=== PATIENT | female | born 1990 ===

== ENCOUNTER 2016-11-01 06:30 | Emergency (ER) | payer SELFPAY ==
--- NOTE | 2016-11-01 07:01 | ERNOTE ---
<Vitaly Lane - Last Filed: 11/01/16 08:01> Abdominal HPI - Narrative Date of Service: 11/01/16 - General Chief Complaint: Abdominal Pain Time Seen by Provider: 11/01/16 06:43 Source: patient Exam Limitations: no limitations - Immun/Allergies/Home Medications Immunizatons: IMMUNIZATION HX Immunizations Up to Date Yes History of Influenza Vaccine Yes Allergies/Adverse Reactions: Allergies No Known Allergies Allergy (Unverified 06/27/16 08:12) - History of Present Illness Narrative: Infraumbilical pain that has been occurring for about three days. Initially the pain was intermittent but now is constant. Denies any vaginal discharge, dysuria , fevers/chills, or urinary frequency. Complaints of minimal back pain. Home test was found to be positive a few days ago. Date (Duration): 11/01/16 Timing: constant Quality: moderate, sharpness Activities at Onset: none Modifying Factors - (Improves): Present: other Modifying Factors - (Worsens): Present: other Associated Symptoms: Absent: fever/chills, nausea, vomiting Prior Abdominal Problems: Present: none Review of Systems - Review of Systems Constitutional: Present: no symptoms reported EYE: Present: no symptoms reported ENT: Present: no symptoms reported Respiratory: Present: no symptoms reported Cardiology: Present: no symptoms reported Gastrointestinal/Abdominal: Present: no symptoms reported Genitourinary: Present: no symptoms reported Musculoskeletal: Present: no symptoms reported Skin: Present: no symptoms reported Neurological: Present: no symptoms reported Endocrine: Present: no symptoms reported Hematologic/Lymphatic: Present: no symptoms reported Psych: Present: no symptoms reported - Patient's Past Medical History Patient History - Medical: No pertinent hx Patient History - Cardiac/Respiratory: Arrhythmias Patient History - Cancer: No Hx of Cancer Patient History - Surgical Procedures: Patient History - Other: None LMP (females 10-50): 2 months - Family History Mother Family History - Cardiac/Respiratory: Asthma - Social History Living Situations: home Smoking Status: Current every day smoker - Immunizations Immunizations Up to Date: Yes History of Influenza Vaccine: Yes Physical Exam - Physical Exam General Appearance: Present: no apparent distress Eye Exam: Normal inspection: bilateral Ears, Nose, Throat: Present: normal ENT inspection Neck: Present: normal inspection Respiratory: Present: no respiratory distress Cardiovascular/Chest: Present: regular rate, rhythm Gastrointestinal/Abdominal: Present: nontender, nondistended, soft, no organomegaly Back Exam: Present: normal inspection Extremity Exam: Present: normal inspection Neurological Exam: Present: alert, oriented, 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 Fluids. Follow-up tis week with Veterinary Surgeon. I have spoken with Dr Alicea today. Return for vaginal bleeding, fever or if your condition worsens or changes in any way. <Beni Garcia - Last Filed: 11/01/16 09:20> Abdominal HPI - Immun/Allergies/Home Medications Immunizatons: IMMUNIZATION HX Immunizations Up to Date Yes History of Influenza Vaccine Yes ED Progress - Results and Orders Patient's Lab Results:: I have reviewed the patient's lab results. - Vital Signs Patient's Vital Signs:: I have reviewed the patient's vital signs. Vital Signs: Vital Signs 11/01/16 06:34 Temperature 36.2 C L Pulse Rate 87 Respiratory 12 Rate Blood Pressure 142/92 O2 Sat by Pulse 96 Oximetry - CT/Ultrasound CT/Ultrasound Narrative: US report reviewed. - Progress/Reassessment Progress Note-Subjective: 11/01/16 09:18 Patient was checked out to be by Dr Lane at shift change. Pending US only. US report reviewed. Patient relates feeling improved. No vaginal bleeding. No ectopic on US. IUP without pole. I discussed the case with Dr Alicea who was signal intelligence/electronic warfare for OB. She will be seen in the office this week. I disucssed this with the patient.
[2016-11-01 07:05] LABS: Urine Bilirubin Negative (NEGATIVE); Urine Blood Negative /ul (NEGATIVE); Urine Ketone Negative (NEGATIVE); Urine Nitrite Negative (NEGATIVE); Urine Protein Negative (NEGATIVE); Urine Specific Gravity 1.015 SP.GR. (1.005-1.010); Urine Urobilinogen Normal (NORMAL)
[2016-11-01 07:12] LABS: Urine Appearance Clear; Urine Bacteria None Seen; Urine Color Yellow; Urine RBC None Seen /hpf (0-5); Urine WBC None Seen /hpf (0-5)
[2016-11-01 07:19] LABS: Hematocrit 36.9 % (37.0-47.0); Hemoglobin 12.5 gm/dL (12.5-16.0); Mean Cell Volume 88.9 fl (78-100); Mean Corpuscular Hemoglobin 30.1 pg (27-31); Mean Corpuscular Hgb Conc 33.9 g/dl (32-36); Mean Platelet Volume 8.6 fl (6.0-9.5); Neutrophil # 6.6 K/mm3 (1.3-6.0); Neutrophil % 61.8 % (42-75.0); Platelet Count 303 K/mm3 (150-450); Red Blood Count 4.15 M/mm3 (4.2-5.4); Red Cell Distribution Width 13.5 % (11.5-14.0); White Blood Count 10.7 K/mm3 (4.0-10.5)
[2016-11-01 07:27] LABS: BUN/Creatinine Ratio 13.4 (9.0-21.6); Calcium * 8.8 mg/dL (7.9-10.9); Carbon Dioxide 25.3 mmol/L (24-32.6); Estimated Creat Clear 107.1; Potassium 3.3 mmol/L (3.4-4.6)
[2016-11-01 09:34] VITALS: BP 122/72
== END 2016-11-01 10:15 | disposition home or self-care (01) ==
LOC: ER 06:30
DX: Z32.01 Encounter for pregnancy test, result positive (principal); F17.210 Nicotine dependence, cigarettes, uncomplicated

== ENCOUNTER 2016-12-28 01:27 | Emergency (ER) | payer OTHER ==
--- NOTE | 2016-12-28 02:09 | ERNOTE ---
ER Female HPI Stated Complaint: BLEEDING AND Presenting Symptoms: vaginal bleeding Source: patient Exam Limitations: no limitations Immunizations: IMMUNIZATION HX Immunizations Up to Date Yes History of Influenza Vaccine Yes Allergies/Adverse Reactions: Allergies No Known Allergies Allergy (Unverified 06/27/16 08:12) Home Medications: HOME MEDICATIONS NK [No Home Medication] 12/28/16 [Last Taken Unknown] - History of Present Illness Narrative: 26 year old year old approximately 12 weeks gestation states she started having vaginal bleeding and some cramping this evening. She has some cramping and bleeding early on in the at the end of October and was seen in the emergency department. She states she's had no bleeding since that time until this evening. She states she's not passed any tissue or clots. Examination reveals no evidence of active bleeding at this time Timing: Present: gone now Quality: Present: mild Prior Abdominal Problems: Present: none Review of Systems - Review of Systems Constitutional: Present: no symptoms reported EYE: Present: no symptoms reported ENT: Present: no symptoms reported Respiratory: Present: no symptoms reported Cardiology: Present: no symptoms reported Gastrointestinal/Abdominal: Present: no symptoms reported Genitourinary: Present: See HPI Musculoskeletal: Present: no symptoms reported Skin: Present: no symptoms reported Neurological: Present: no symptoms reported Endocrine: Present: no symptoms reported Hematologic/Lymphatic: Present: no symptoms reported Psych: Present: no symptoms reported - Patient's Past Medical History Patient History - Medical: No pertinent hx Patient History - Cardiac/Respiratory: Arrhythmias Patient History - Cancer: No Hx of Cancer Patient History - Surgical Procedures: Patient History - Other: None LMP (females 10-50): - Family History Mother Family History - Cardiac/Respiratory: Asthma - Social History Living Situations: parents Abuse History: No History of abuse Psych History: No pertinent hx Smoking Status: Current every day smoker Alcohol Use: none Drug Use: none - Immunizations Immunizations Up to Date: Yes History of Influenza Vaccine: Yes Physical Exam - Physical Exam General Appearance: Present: wd/wn, alert, no apparent distress Eye Exam: Normal inspection: bilateral, PERRL: bilateral Ears, Nose, Throat: Present: normal ENT inspection, H, normal pharynx Neck: Present: normal inspection, nontender Respiratory: Present: no respiratory distress, normal breath sounds, no accessory muscle use, chest nontender, lungs clear Cardiovascular/Chest: Present: regular rate, rhythm, no murmur, normal peripheral pulses Gastrointestinal/Abdominal: Present: normal bowel sounds, nontender, nondistended, soft, no organomegaly Rectal Exam: Present: deferred Back Exam: Present: normal inspection, normal range of motion, no CVA tenderness , no vertebral tenderness Extremity Exam: Present: normal inspection, non-tender, no edema, normal range of motion Neurological Exam: Present: alert, oriented, normal mood/affect, no motor/ sensory deficits Skin Exam: Present: normal color, warm/dry Lymphatic Exam: Present: no adenopathy Pelvic Exam: Absent: active bleeding ED Progress - Vital Signs Vital Signs: Vital Signs 12/28/16 01:35 Temperature 37.1 C Pulse Rate 80 Respiratory 14 Rate Blood Pressure 129/85 O2 Sat by Pulse 100 Oximetry - Progress/Reassessment Chief Complaint: Genitourinary Problem Departure Clinical Impression: Threatened - Departure Disposition: Home self-care Condition: Good Instructions: Threatened Miscarriage, [id number] Additional Instructions: See Dr. Alicea on Thursday for an HCG blood test. Call her or return to the ER if heavy bleeding occurs Referrals: Abigail Alicea DO [Primary Care Provider] -
[2016-12-28 02:56] VITALS: BP 121/73
--- OUTSIDE RECORDS SUMMARY | 2016-12-28 03:04 | XMS REPORT | CCD ---
:1990 Author Name PARRISMARIO DAVIS Thom Address [address] [facility] Unavailable [place], [place] [id number] Care Team Providers Name Role Phone DURAN VALDERRAMA Attending Physician Unavailable DURAN VALDERRAMA Er Physician 1 Unavailable Vital Signs Vital Sign Value Unit Date/Time Recent/Initial? Weight Measured 170.4 lbs 06/13/2015 05:38 Initial VS Height 63 in 06/13/2015 05:38 Initial VS BMI (Body Mass Index) 30.18 kg/m^2 06/13/2015 05:38 Initial VS BSA (Body Surface Area) 1.85 m^2 06/13/2015 05:38 Initial VS BP Systolic 131 mmHg 06/13/2015 05:38 Initial VS BP Diastolic 93 mmHg 06/13/2015 05:38 Initial VS Allergies Allergy Code Allergy Type Reaction Status No Known Allergies 0 No known allergies Active Procedures Procedure Code Procedure Type Date ABD 2 VWS DECUB OR UPRIGHT 08194871 SNOMED CT 06/13/2015 History of Immunizations Immunization Code Date MMR 03 02/05/1995 Hib, unspecified formulation 17 1992 Hib, unspecified formulation 17 1992 Hib, unspecified formulation 17 02/05/1995 Hib, unspecified formulation 17 1992 DTP-Hib 22 1992 DTP-Hib 22 1992 DTP-Hib 22 1992 DTaP, unspecified formulation 107 02/06/1995 Novel [id number], preservative-free 126 08/20/2009 Influenza, seasonal, injectable 141 08/05/2011 no vaccine administered 998 1992 Problems Problem Code Start Date Resolved Date Status Poor nutrition 45675049 Active Results COMPREHENSIVE METABOLIC PANEL - Collect Date/Time: 06/13/2015 05:54 Test Name Code Test Result Test Units Test Ref Range GLUCOSE 80 mg/dL L=74 H=106 SODIUM 140 mmol/L L=136 H=145 POTASSIUM 3.6 mmol/L L=3.5 H=5.1 CHLORIDE 103 mmol/L L=98 H=107 CO2 27 mmol/L L=21 H=32 BUN 13.0 mg/dL L=7.0 H=18.0 CREATININE 0.8 mg/dL L=0.6 H=1.0 BUN/CREAT 16.3 L=7.6 H=21.2 CALCIUM 9.0 mg/dL L=8.6 H=10.1 TOTAL BILI 0.2 mg/dL L=0.2 H=1.0 TOTAL PROTEIN 7.2 g/dL L=6.4 H=8.2 ALBUMIN 3.7 g/dL L=3.4 H=5.0 A/G RATIO 1.1 ALKALINE PHOS 112 IU/L L=50 H=136 AST/SGOT 16 IU/L L=15 H=37 ALT/SGPT 25 IU/L L=12 H=78 ANION GAP 13.5 mmol/L L=7.0 H=16.0 AGE 25 YEARS GFR 94.48 ml/min CBC W/DIFF - Collect Date/Time: 06/13/2015 05:54 Test Name Code Test Result Test Units Test Ref Range WBC 6690-2 9.3 K/uL L=3.2 H=10.0 RBC 789-8 4.36 M/uL L=4.00 H=5.20 HEMOGLOBIN 718-7 13.0 g/dL L=12.1 H=15.6 HEMATOCRIT 37.5 % L=35.0 H=47.0 MCV 86.0 fL L=81.0 H=101 MCH 29.8 PG L=26.0 H=38.0 MCHC 34.7 G/DL L=31.0 H=37.0 RDW-SD 43.0 FL L=37.0 H=54.0 RDW-CV 14.1 % L=11.0 H=16.0 PLATELETS 350 K/UL L=140 H=380 MPV 9.2 FL L=9.0 H=13.0 %GRAN 46.3 % L=0.0 H=75.0 %LYMPH 42.9 % L=0.0 H=50.0 %MONO 6.1 % L=0.0 H=14.0 %EOS 4.3 % L=0.0 H=6.0 %BASO 0.4 % L=0.0 H=1.0 #GRAN 4.28 K/UL L=1.80 H=7.80 #LYMPH 3.98 K/UL L=0.30 H=4.00 #MONO 0.57 K/UL L=0.00 H=0.70 #EOS 0.40 K/UL L=0.00 H=0.40 #BASO 0.04 K/UL L=0.00 H=0.10 SLIDE REVIEWED? NOT INDICATED N/A MANUAL DIFF NOT INDICATED N/A UA W/MICROSCOPIC EXAM - Collect Date/Time: 06/13/2015 05:54 Test Name Code Test Result Test Units Test Ref Range COLOR UR Yellow N/A NORMAL:YELLOW CLARITY UR Clear N/A NORMAL:CLEAR SP GRAV UR 1.015 N/A NORMAL:1.000-1.030 PH UR 6.0 N/A NORMAL:5.0-8.5 PROTEIN UR Negative N/A NORMAL:NEGATIVE GLUCOSE UR Negative N/A NORMAL:NEGATIVE KETONE UR Negative N/A NORMAL:NEGATIVE BILIRUBIN UR Negative N/A NORMAL:NEGATIVE BLOOD UR Negative N/A NORMAL:NEGATIVE LEUK UR Negative N/A NORMAL:NEGATIVE NITRITE UR Negative N/A NORMAL:NEGATIVE MICRO SEE BELOW N/A RBC/hpf 0 N/A NORMAL:0-5/hpf WBC/hpf 0 N/A NORMAL:0-10/hpf EPI UR 10-20 N/A NORMAL:NONE SEEN BACTERIA UR NONE SEE N/A NORMAL:NONE SEEN MUCOUS NONE SEE N/A NORMAL:NONE SEEN CAST NONE SEE N/A CRYSTALS NONE SEE N/A CULTURE? NO N/A HCG QUALITATIVE, SERUM OR PLASMA - Collect Date/Time: 06/13/2015 05:54 Test Name Code Test Result Test Units Test Ref Range BHCG QUAL NEGATIVE N/A Active Medications Unknown or Not Available. Medications Administered During Visit Unknown or Not Available. Encounters Encounter Diagnosis Diagnosis Code Start Date UNSPECIFIED CONSTIPATION 72821 06/13/2015 Social History Smoking Status Code Start Date End Date Current every day smoker [id number] 02/07/1999 Patient Decision Aids Unknown or Not Available. Discharge Instructions You were admitted to [facility] on 06/13/2015 with a principal diagnosis of UNSPECIFIED CONSTIPATION. You were discharged from [facility] on 06/13/2015. Should you have any questions prior to discharge, please contact a member of your healthcare team. If you have left the hospital and have any questions, please contact your primary care physician. Chief Complaint and Reason For Visit Chief Complaint Date of Onset LOWER LEFT ABDOM PAIN Function Status Unknown or Not Available. Plan of Care Unknown or Not Available. Referral/Transition of Care Unknown or Not Available.
--- OUTSIDE RECORDS SUMMARY | 2016-12-28 03:04 | XMS REPORT | Continuity of Care Document ---
:1990 Author Organization [facility] ([facility]) Address [address] [place] [address] Phone [phone] Support Name Relationship Address Phone Unavailable Unavailable [address] 10/[address] [id number] [address] [place] [address] Care Team Providers Name Role Phone Provider, No-Primary Care Primary Care Provider Unavailable Source Comments This disclosure is being made pursuant to the Care Everywhere program, applicable federal and state laws, and may not contain all informaitonavailable regarding this patient.[facility] ([facility]) Active Allergies and Adverse Reactions No Known Allergies Current Medications Prescription Sig. Disp. Refills Start Date End Date Status nitrofurantoin Take 1 Cap by mouth 14 Cap 0 12/04/2014 Active (MACROBID) 100 mg 2 times daily. capsule Indications: BACTERIAL URINARY TRACT INFECTION Active Problems Problem Noted Date Abdominal pain in , antepartum 12/04/2014 08/13/2010 Immunizations Name Dates Previously Given Next Due Tdap 08/14/2010 Social History Tobacco Use Types Packs/Day Years Used Date Current Every Day Smoker Cigarettes 0.25 Alcohol Use Drinks/Week oz/Week Comments No occassional Last Filed Vital Signs Vital Sign Reading Time Taken Blood Pressure 134/72 10/08/2015 6:51 PM ASSURANCE AUDITOR Pulse 88 10/08/2015 6:51 PM ASSURANCE AUDITOR Temperature 35.7 C (96.3 F) 10/08/2015 6:51 PM ASSURANCE AUDITOR Respiratory Rate 17 10/08/2015 6:51 PM ASSURANCE AUDITOR Height 1.575 m (5' 2") 10/08/2015 6:51 PM ASSURANCE AUDITOR Weight 72.576 kg (160 lb) 10/08/2015 6:51 PM ASSURANCE AUDITOR Body Mass Index 29.26 10/08/2015 6:51 PM ASSURANCE AUDITOR Oxygen Saturation 100% 10/08/2015 6:51 PM ASSURANCE AUDITOR Plan of Care Health Maintenance Due Date Last Done Comments Hepatitis B Vaccine (1 of 3 - Primary Series) 1992 HPV Vaccine (1 of 3 - Female/Unknown 3 Dose Series) 02/07/2003 Cervical Cancer Screening 02/07/2010 Lipid Disorder Screening 02/07/2010 MMR Vaccine 02/07/2010 Pneumococcal Vaccine (1 of 1 - PPSV23) 02/07/2011 Influenza Vaccine: Seasonal (#1) 05/05/2016 Td Vaccine 08/14/2020 08/14/2010 Tdap Vaccine Completed 08/14/2010 Results from Last 3 Months Not on file
--- OUTSIDE RECORDS SUMMARY | 2016-12-28 03:04 | XMS REPORT | CCD ---
:1990 Author Name STEVEMARIO SOUSA Thom Address [address] [facility] Unavailable [place], [place] [id number] Care Team Providers Name Role Phone NELIA TURCIOS Attending Physician Unavailable NELIA TURCIOS Er Physician 1 Unavailable IZA Jansen Registered Nurse Unavailable Vital Signs Vital Sign Value Unit Date/Time Recent/Initial? Weight Measured 160 lbs 02/12/2014 15:27 Initial VS Height 62 in 02/12/2014 15:27 Initial VS BMI (Body Mass Index) 29.26 kg/m^2 02/12/2014 15:27 Initial VS BSA (Body Surface Area) 1.78 m^2 02/12/2014 15:27 Initial VS Allergies Unknown. Procedures Unknown. History of Immunizations Unknown. Problems Unknown. Results UA W/MICROSCOPIC EXAM Test Name Code Test Result Test Units Test Date/Time COLOR UR DK YELLOW N/A 02/12/2014 16:01 CLARITY UR SL CLOUDY N/A 02/12/2014 16:01 SP GRAV UR 1.010 N/A 02/12/2014 16:01 PH UR 6.0 N/A 02/12/2014 16:01 PROTEIN UR 1+ N/A 02/12/2014 16:01 GLUCOSE UR NEGATIVE N/A 02/12/2014 16:01 KETONE UR TRACE N/A 02/12/2014 16:01 BILIRUBIN UR NEGATIVE N/A 02/12/2014 16:01 BLOOD UR 2+ N/A 02/12/2014 16:01 LEUK UR TRACE N/A 02/12/2014 16:01 NITRITE UR NEGATIVE N/A 02/12/2014 16:01 MICRO SEE BELOW N/A 02/12/2014 16:01 RBC/hpf 5 N/A 02/12/2014 16:01 WBC/hpf 5 N/A 02/12/2014 16:01 EPI UR 2-5 N/A 02/12/2014 16:01 BACTERIA UR FEW N/A 02/12/2014 16:01 MUCOUS NONE SEE N/A 02/12/2014 16:01 CAST NONE SEE N/A 02/12/2014 16:01 CRYSTALS NONE SEE N/A 02/12/2014 16:01 CULTURE? YES N/A 02/12/2014 16:01 Medications No Active Medications Medications Administered Unknown. Encounters Encounter Diagnosis Diagnosis Code Start Date URIN TRACT INFECTION NOS 5990 02/12/2014 Social History Smoking Status Code Start Date End Date Current every day smoker [id number] Patient Decision Aids Patient Decision Aid [facility] Patient Educational Materials Discharge Instructions You were admitted to [facility] on 02/12/2014 with a principle diagnosis of URIN TRACT INFECTION NOS. You had the following procedures done:INJECT ANTIBIOTIC You were discharged from [facility] on 02/12/2014. Should you have any questions prior to discharge, please contact a member of your healthcare team. If you have left the hospital and have any questions, please contact your primary care physician. Chief Complaint and Reason For Visit Chief Complaint Date of Onset BLOOD IN URINE Function Status Unknown. Plan of Care Unknown. Referral/Transition of Care Unknown.
--- OUTSIDE RECORDS SUMMARY | 2016-12-28 03:05 | XMS REPORT | CCD ---
:1990 Author Name ANNABELLA CORREA Address [address] Unavailable [place], [place] [id number] Care Team Providers Name Role Phone BRUNA STEVENSON Attending Physician Unavailable Vital Signs Vital Sign Value Unit Date/Time Recent/Initial? BP Systolic 136 mmHg 01/31/2015 15:04 Initial VS BP Diastolic 70 mmHg 01/31/2015 15:04 Initial VS Respiratory Rate 18 bpm 01/31/2015 15:04 Initial VS Heart Rate 59 bpm 01/31/2015 15:04 Initial VS Body Temperature 98.5 degrees 01/31/2015 15:04 Initial VS Weight Measured 188.8 lbs 01/31/2015 15:24 Initial VS Height 62 in 01/31/2015 15:24 Initial VS BMI (Body Mass Index) 34.39 kg/m^2 01/31/2015 15:24 Initial VS BSA (Body Surface Area) 1.94 m^2 01/31/2015 15:24 Initial VS Allergies Allergy Code Allergy Type Reaction Status No Known Allergies 0 No known allergies Active Procedures Procedure Code Procedure Type Date CULTURE URINE [id number] SNOMED CT 01/31/2015 History of Immunizations Immunization Code Date MMR 03 02/05/1995 Hib, unspecified formulation 17 1992 Hib, unspecified formulation 17 1992 Hib, unspecified formulation 17 02/05/1995 Hib, unspecified formulation 17 1992 DTP-Hib 22 1992 DTP-Hib 22 1992 DTP-Hib 22 1992 DTaP, unspecified formulation 107 02/06/1995 Novel [id number], preservative-free 126 08/20/2009 Influenza, seasonal, injectable 141 08/05/2011 no vaccine administered 998 1992 Problems Problem Code Start Date Resolved Date Status Poor nutrition 40257480 Active Results URINALYSIS - Collect Date/Time: 01/31/2015 15:43 Test Name Code Test Result Test Units Test Ref Range COLOR UR Dark yello N/A NORMAL:YELLOW CLARITY UR Clear N/A NORMAL:CLEAR SP GRAV UR 1.020 N/A NORMAL:1.000-1.030 PH UR 7.0 N/A NORMAL:5.0-8.5 PROTEIN UR 1+ N/A NORMAL:NEGATIVE GLUCOSE UR Negative N/A NORMAL:NEGATIVE KETONE UR Negative N/A NORMAL:NEGATIVE BILIRUBIN UR 1+ N/A NORMAL:NEGATIVE BLOOD UR Negative N/A NORMAL:NEGATIVE LEUK UR 1+ N/A NORMAL:NEGATIVE NITRITE UR Negative N/A NORMAL:NEGATIVE MICROSCOPIC NOT INDICAT N/A CULTURE? YES N/A Active Medications No Active Medications Medications Administered During Visit Unknown or Not Available. Encounters Encounter Diagnosis Diagnosis Code Start Date THREAT LABOR NEC-ANTEPAR 54741 01/31/2015 Social History Smoking Status Code Start Date End Date Current every day smoker [id number] Patient Decision Aids Patient Decision Aid AP - ABDOMINAL PAIN CHRONIC PELVIC PAIN Discharge Instructions You were admitted to [facility] on 01/31/2015 with a principal diagnosis of THREAT LABOR NEC-ANTEPAR. You were discharged from [facility] on 01/31/2015. Should you have any questions prior to discharge, please contact a member of your healthcare team. If you have left the hospital and have any questions, please contact your primary care physician. Chief Complaint and Reason For Visit Chief Complaint Date of Onset 30 WKS GROIN PAIN Function Status Unknown or Not Available. Plan of Care Unknown or Not Available. Referral/Transition of Care Reason for Transfer: REQUESTING TO Referring Provider: [facility] Address: [address] [place] [address] Additional Information: CALL [facility] FOR AN APPOINTMENT
== END 2016-12-28 03:00 | disposition home or self-care (01) ==
LOC: ER 01:27
DX: O20.0 Threatened abortion (principal); Z3A.12 12 weeks gestation of pregnancy